=== PATIENT | female | born 1960 | race African-American/Black ===

== ENCOUNTER 2016-08-27 10:54 | Observation (INO) | payer BC ==
[2016-08-23 12:29] LABS: HEMATOCRIT 38.8 % (36.0-48.0); HEMOGLOBIN 12.6 g/dL (12.0-16.0)
[2016-08-23 12:43] LABS: A/G RATIO 0.8 (0.7-1.9); ALBUMIN 3.6 G/DL (3.5-5.0); ALKALINE PHOSPHATASE 81 U/L (45-117); CALCIUM, SERUM 9.3 MG/DL (8.5-10.4); CHLORIDE, SERUM 103 MMOL/L (96-112); CO2 (CARBON DIOXIDE) 30 MMOL/L (24-34); CREATININE 0.84 MG/DL (0.55-1.02); GFR AFRICAN AMERICAN 89 ML/MIN (>=60); GFR NON AFRICAN AMERICAN 77 ML/MIN (>=60); GLOBULIN 4.3 G/DL (2.5-4.1); GLUCOSE, SERUM 94 MG/DL (60-99); POTASSIUM, SERUM 3.8 MMOL/L (3.5-5.3); SGOT(AST) 10 U/L (5-40); SGPT(ALT) 14 U/L (5-65); SODIUM, SERUM 141 MMOL/L (135-148); TOTAL PROTEIN 7.9 G/DL (6.0-8.5)
[2016-08-23 12:44] LABS: BUN (BLOOD UREA NITROGEN) 11 MG/DL (6-23); TOTAL BILIRUBIN 0.4 MG/DL (0-1.2)
--- NOTE | ~2016-08-27 | OP ---
Record Of Operation [facility] [address] [facility] [address] NAME: MIGUEL CRANDALLYCE : 58 STATUS : DIS Masha [facility]#: [id number] AGE: 56 ADM/REG DATE : 08/27/16 MR#: [id number] REPORT SERV DATE: 08/29/16 DICTATED BY: RYAN OGDEN DATE: 08/29/16 REPORT STATUS : Draft TRANSCRIBED BY: NASREEN DATE: 08/29/16 DATE OF PROCEDURE: 08/27/2016 SURGEON: Ryan Ogden DPM. RIP SAW OPERATOR: Mirian Saucedo DPM PREOPERATIVE DIAGNOSES: 1. Left ankle synovitis. 2. Left peroneus brevis tendon tear. 3. Left malleolus avulsion fracture. 4. Left lateral ankle instability with anterior talofibular ligament disruption. POSTOPERATIVE DIAGNOSES: 1. Left ankle synovitis. 2. Left peroneus brevis tendon tear. 3. Left malleolus avulsion fracture. 4. Left lateral ankle instability with anterior talofibular ligament disruption. PROCEDURE: 1. Left ankle arthroscopy with synovectomy. 2. Left peroneus brevis tendon repair with tubularization and application of amniotic allograft for additional augmentation. 3. Left lateral ankle stabilization. 4. Left open treatment of distal fibular fracture, excision of avulsion fragment. ANESTHESIA: General. HEMOSTASIS: Left calf tourniquet set at 250 mmHg. ESTIMATED BLOOD LOSS: Minimal. MATERIALS UTILIZED: Arthrex 2.4 mini SutureTak x2, [employer] FlowerPatch, amniotic allograft, 2-0 Vicryl, 3-0 Vicryl, and 3-0 Prolene. INJECTABLES: 30 mL of 0.5% ropivacaine plain. COMPLICATIONS: None. CONDITION: Stable. JUSTIFICATION FOR PROCEDURE: The patient is a very pleasant 56-year-old female, well known to my practice with a history of an avulsion fracture to her left ankle. She was originally treated cast immobilization, but unfortunately developed a DVT to that limb. She was followed by Dr. Botello, Vascular Surgeon, who treat her the DVT surgically as well as medically. The patient continued to have pain over the past six months with conservative Record Of Operation [facility] [address] [place] [address] NAME: LAUREN CRANDALLSUSAN KWAN : 58 STATUS : DIS Masha PAT#: [id number] AGE: 56 ADM/REG DATE : 08/27/16 MR#: [id number] REPORT SERV DATE: 08/29/16 DICTATED BY: RYAN OGDEN DATE: 08/29/16 REPORT STATUS : Draft TRANSCRIBED BY: NASREEN DATE: 08/29/16 treatments and is only requesting surgical intervention at this time. An MRI was done showing peroneus brevis tendon tear as well as lateral ankle instability, as well as the avulsed fragment to the lateral malleolus. A discussion was held with Dr. Botello regarding tourniquet utilization with his patient, he was okay with utilization of calf tourniquet, but advised against utilization of a thigh tourniquet. We will follow those recommendations. The patient understands all the risks, benefits, alternatives, postoperative course in detail, as they have been explained to her by myself. Informed consent was obtained and the patient understands as in all surgeries, there are no guarantees, none of which have been given, stated, or implied. The patient was cleared from medical standpoint and we will plan on admitting the patient for 23 hour observation postoperatively. DESCRIPTION OF PROCEDURE AND FINDINGS: Under mild sedation the patient was brought into the operating room and placed on the operating room table in supine position. Following induction of general anesthesia a bump was placed underneath the left hip to generally rotate the left leg. A well-padded pneumatic calf tourniquet was applied, and the left lower extremity was prepped, scrubbed, and draped in the usual sterile fashion. Next, an Esmarch bandage was utilized to exsanguinate the left lower extremity and the pneumatic tourniquet was inflated to 250 mmHg. At this time, a spinal needle was used to insufflate the left ankle joints with approximately 20 mL of saline. A small incision approximately 1 cm length was made just medial to the tibialis anterior tendon over the ankle joint. A blunt dissection was carried down to the capsule and the obturator and cannula were inserted into the ankle joint. The obturator was removed and the small joint scope was inserted. There was noted to be no significant osteochondral lesion or defects, but there was significant amount of synovitis within the anterior ankle capsule, as well as the lateral gutter. The anterolateral aspect of the ankle joint was then transilluminated and a 1 cm incision was made over the anterolateral aspect of the ankle taking care to avoid the intermediate dorsal cutaneous nerve. Again, blunt dissection was used, followed by puncture of the ankle capsule with obturator. Next, the 3.5-mm Aggressive Shaver was inserted into the lateral portal and a synovectomy was performed. Next, the scope and shaver were removed and the portals were closed with 3-0 Prolene in a horizontal mattress fashion. At this time, attention was directed to the lateral ankle where a skin was utilized to plan out a 6 cm incision approximately 3 cm proximal to the distal aspect of the fibula extending distally towards the base of the fourth metatarsal. Next, a #15 blade was utilized to make an incision down to the subcutaneous layer, taking care to identify and retract neurovascular structures and cauterize any bleeders. A blunt dissection was carried down through the subcutaneous layer utilizing curved [place]. It should be noted that the superficial peroneal nerve as well as sural nerves were carefully protected and retracted. At this time, the superficial peroneal retinaculum was dissected from the underlying capsular ligament, and the lateral ligaments ATFL and CFL were detached from the fibula by sharp dissection. At this time, the small avulsion fracture at the distal aspect of fibula was identified and excised utilizing scalpel as well as rongeurs to remove the hypertrophied bone at the distal aspect of the fibula. Again, intraoperative fluoroscopy was utilized during this portion of the procedure and we had excellent resection of the avulsion Record Of Operation [address] [place]. [address] NAME: MIGUEL CRANDALL : 58 STATUS : DIS Masah PAT#: [id number] AGE: 56 ADM/REG DATE : 08/27/16 MR#: [id number] REPORT SERV DATE: 08/29/16 DICTATED BY: RYAN OGDEN DATE: 08/29/16 REPORT STATUS : Draft TRANSCRIBED BY: NASREEN DATE: 08/29/16 fraction. Next, care was taken to leave a leave a cuff of capsule and ligaments by making the incision a few millimeters proximal to the edge of the fibula. It should be noted that the ligamentous side were attenuated with tears noted. Next, the peroneal tendons were visualized along its course and the peroneal tendon sheath was severed along the course of the peroneal tendons and tagged with 3-0 Vicryl for later approximation. The peroneal brevis tendon was noted to be significantly flattened and a longitudinal tear was noted along the course of the tendon starting approximately 3 cm proximal to the distal aspect of the fibula extending distally. Upon visualizing the entire portion of the tear any devitalized portion of the tendon was resected and utilizing 2-0 Vicryl the tendon was tubularized in order to form a nice round structure. All the tenosynovitis within the tendon sheath was resected. It was also to be noted that there was a mild low line muscle belly within the peroneal brevis tendon, this was resected as well utilizing cautery. Next, this wound was copiously irrigated with sterile saline. It should be noted 2-0 Vicryl was utilized to tabularize the tendon in a buried suture fashion and the peroneus longus tendon was left uninterrupted. At this time, attention was directed again to the fibula, where the bone was prepared for the insertion of the anchors. Two anchors were placed, the bone pre-drilled with a 1.8 mm drill bit in order for insertion of the 2.4 mm SutureTak. Next the 2.4 mini SutureTak anchors were placed in the holes, due to the small size of fibula only two anchors were utilized at this portion. The first anchor was placed approximately 5 mm proximal to the distal tip of fibula, the second anchor was placed 1 cm proximal to that site. Next, with the anchors fully seated, the sutured needles were passed through ATFL and CFL, and capsule and they were advanced to the distal fibula. It should be noted that prior to tying these sutures down, the foot was held in dorsiflex and in everted position in order to maximally stabilize the lateral ligaments. At this time, the ankle was tested and there was noted to be a negative anterior dorsi and the wound was copiously irrigated with sterile saline. 2-0 Vicryl was utilized to reapproximated the peroneal tendon sheath along its course. It should be noted that prior to reapproximation of the peroneal tendon sheath an application of amniotic allograft FlowerPatch was applied around the peroneal brevis tendon to further augment the structure and prevent adhesion along the tendon sheath as well as promote healing within the tendon. Again, the peroneal tendon sheath was reapproximated along its course. Next, the peroneal retinaculum was advanced over the ligaments of the lateral ankle and sutured in place with periosteum utilizing 2-0 Vicryl. We had excellent correction of this deformity. Again, the wound was copiously irrigated and 3-0 Vicryl was utilized at this time for subcutaneous reapproximation, followed by 3-0 Prolene cutaneous reapproximation in horizontal mattress fashion. Next, the tourniquet was deflated and there was noted to be an immediate hyperemic response to the patient's left foot and leg. Next, the aforementioned 30 mL of 0.5% ropivacaine plain was injected proximal to the incision site, as well as within the ankle joint. Xeroform was applied over all the incision site, followed by copious gauze, Kerlix, and the left lower extremity was placed in a well-padded posterior splint. It should be noted that the posterior splint was held in a dorsiflexed and everted position to help maintain the correction. The patient tolerated the procedure and anesthesia well, and left the operating room with Record Of Operation [address] [place]. [address] NAME: MIGUEL CRANDALL : 58 STATUS : DIS Masha PAT#: [id number] AGE: 56 ADM/REG DATE : 08/27/16 MR#: [id number] REPORT SERV DATE: 08/29/16 DICTATED BY: RYAN OGDEN DATE: 08/29/16 REPORT STATUS : Draft TRANSCRIBED BY: NASREEN DATE: 08/29/16 vital signs stable, and neurovascular status intact to her left lower extremity. The patient will be transferred to recovery, where nurses were asked to ice and elevate the patient's left lower extremity. The patient has been instructed to be strictly nonweightbearing approximately for six weeks. She is to reinitiate her anticoagulation therapy utilizing Lovenox, as well as Coumadin starting Tuesday morning. She is going to be utilizing the Lovenox for next five days until the Coumadin is at therapeutic levels. She is to follow up with Dr. Botello for management of her vascular status. The patient will be admitted to the floor for 23 hour observation under the service of Dr. Guerra. The patient again has been instructed on all signs of infection as well as DVT. The patient has been instructed to call the office immediately or report to the emergency room if any problems or signs of infection should occur prior to her scheduled followup appointment. She is to follow up with me within three to five days unless any signs of infection or DVT should occur at which time she is to the emergency room immediately. CARLOS/NASREEN Ryan Ogden DPM / [id number] CC: MD Oumou Mckeon M.D.
--- NOTE | ~2016-08-27 | HP ---
History And Physical [facility] [place] [id number] [facility] [place]. [address] NAME: MIGUEL CRANDALL : 58 STATUS : ADM Masha PAT#: [id number] AGE: 56 ADM/REG DATE : 08/27/16 MR#: [id number] REPORT SERV DATE: 08/28/16 DICTATED BY: BLAYNE SARABIA DATE: 08/27/16 REPORT STATUS : Draft TRANSCRIBED BY: MODL DATE: 08/27/16 DATE OF ADMISSION: 08/27/2016 CHIEF COMPLAINT: Left ankle fracture. HISTORY OF PRESENT ILLNESS: This is a 56-year-old lady with no pertinent past medical history, presenting postop a left ankle ORIF. The patient had left ankle fracture back in February of last year. Efforts have been made thus far to treat the ankle fracture non- operatively, but the patient has failed to heal and she actually developed DVT from having had the cast for a long time, and thus, decision was made to have an ORIF of the left ankle today. The patient is actually postop, and she was to be monitored overnight by the operating physician, Dr. Souza. However, he did not have any admitting privileges at our facility and thus Hospitalist Service was consulted for admission of the patient for observation overnight. Apparently, there was no obvious complications in regard to the surgery itself or the recovery postop. However, the main concern is to be able to watch the patient overnight for better pain control prior to discharge home. REVIEW OF SYSTEMS: The patient denies any fevers or chills. Also, 14-point review of systems reviewed and negative other than mentioned above. MEDICATIONS: 1. Lotensin 18/05.5 one tab p.o. b.i.d. 2. Albuterol inhaler. 3. Coumadin 5 mg p.o. daily. 4. Lovenox bridging for the surgery. 5. Norvasc 5 mg p.o. daily. 6. Percocet 5/325 one tab p.o. q.6 hours p.r.n. 7. Aspirin 81 mg p.o. daily. 8. Vitamin D 1000 units p.o. daily. 9. Os-Clem D 500 mg p.o. daily. ALLERGIES: AMOXICILLIN. PAST MEDICAL HISTORY: 1. Hypertension. 2. DVT from having had a prolonged left ankle immobilization with cast. PAST SURGICAL HISTORY: 1. Bilateral tubal ligation. 2. Hysterectomy. 3. Left thumb amputation. 4. Carpal tunnel release. SOCIAL HISTORY: The patient does not smoke, drink alcohol, or use any illicit drugs. The patient is at home with her daughter. The patient has multiple family members in the room History And Physical [address] [place]. [address] NAME: MIGUEL CRANDALL : 58 STATUS : ADM Masha PAT#: [id number] AGE: 56 ADM/REG DATE : 08/27/16 MR#: [id number] REPORT SERV DATE: 08/28/16 DICTATED BY: BLAYNE SARABIA DATE: 08/27/16 REPORT STATUS : Draft TRANSCRIBED BY: NASREEN DATE: 08/27/16 during my encounter. PHYSICAL EXAMINATION: VITAL SIGNS: The initial set of vital signs are still pending at this time, but the patient is seen to be afebrile and quite stable on room air. GENERAL: The patient is alert and oriented x3 with no focal neurologic deficits. The patient is awake, does not appear to be in acute distress, and she is cooperative. NECK: No JVD. No lymphadenopathy. Normal thyroid. CHEST: No midline sternotomy scar and no tenderness to palpation. LUNGS: Clear to auscultation bilaterally with normal respiratory effort on room air. CARDIOVASCULAR: Regular rate and rhythm with no murmurs, rubs, or gallops, and PMI is nondisplaced. ABDOMEN: Soft, nontender, with active bowel sounds and no organomegaly. EXTREMITIES: No edema. Normal distal pulses. No calf tenderness. The patient's left ankle is tightly dressed and wrapped after the surgery. SKIN: Clean, dry, warm, and intact. LABS: Reviewed and there is a CMP from 08/23/2016, which was completely within normal limits, and the patient also had a CBC this morning, which is also quite benign. ASSESSMENT: This is a 56-year-old lady who is being admitted to the hospital postop for a 23 hour observation for better pain control prior to discharge home. 1. Status post open reduction and internal fixation of left ankle. 2. Hypertension. 3. History of deep vein thrombosis. PLAN: We will admit the patient overnight for better pain control. The patient will be able to resume all of her home medications and diet. Assuming, the patient has no further complications, the patient should be able to be discharged home tomorrow. Hospitalist Service will be available throughout the hospital stay and provide for any additional needs that may arise. Standard DVT prophylaxis. The patient is full code at this time. YSC/MODL Blayne Sarabia MD / [id number] CC: MD Oumou Mckeon M.D.
--- NOTE | ~2016-08-27 | DS ---
Discharge Summary [facility] [address] [place]. [address] NAME: MIGUEL CRANDALL : 58 STATUS : DIS Masha PAT#: [id number] AGE: 56 ADM/REG DATE : 08/27/16 MR#: [id number] REPORT SERV DATE: 08/28/16 DICTATED BY: BLAYNE SARABIA DATE: 08/28/16 REPORT STATUS : Draft TRANSCRIBED BY: MODL DATE: 08/28/16 ADMISSION DATE: 08/27/2016 DISCHARGE DATE: 08/28/2016 DISCHARGE DIAGNOSES: 1. Status post left ankle surgery. 2. Hypertension. 3. History of deep vein thrombosis. CONSULT: Dr. Souza. PROCEDURES: Left ankle ORIF. HOSPITAL COURSE: This is a 56-year-old lady, who was actually admitted postop left ankle ORIF. For details, please refer to my H and P from yesterday. The patient's surgery was uncomplicated and the patient actually did well overnight. The patient was simply monitored for observation overnight for better pain control. The patient is now being discharged home with p.o. pain medications and to be continued to follow up closely as an outpatient. DISCHARGE MEDICATIONS: No changes, but I am giving her prescription for a Percocet 5/325 one to two tabs p.o. q.4 hours p.r.n. for a dose of 20. I am also giving her a prescription for Dulcolax prophylactically. Otherwise, no medication changes. DISPOSITION: Home. FOLLOWUP: 1. Please follow up with Dr. Souza as already scheduled. 2. Please follow up with PCP in the next two to three weeks. Total of 25 minutes spent in coordinating this patient's discharge today. Cam/NASREEN Blayne Sarabia MD / [id number] CC: MD Oumou Mckeon M.D.
[~2016-08-27 10:54] MED LIST: ALEVE220 MG PO; ALLEGRA-D12 HOUR PO; ASAB PO; C5 PO; FLONASE NAS; FLUTICASON INH; LOTE5 PO; LOTENSIN HCT1 TA2 PO; LOVENOX; MUCINEX DM1 TAB OR; NORV5 PO; OS500+D PO; PCET PO; PROVHFA INH; VESICARE5 PO; VITAMIN D1000 UNI1 PO
[2016-08-27 12:47] LABS: BASOPHILS 0.3 %; BASOPHILS ABSOLUTE 0.02 10/3/uL (0.0-0.16); EOSINOPHILS 3.6 %; EOSINOPHILS ABSOLUTE 0.21 10/3/uL (0.0-0.53); HEMATOCRIT 36.7 % (36.0-48.0); HEMOGLOBIN 11.7 g/dL (12.0-16.0); IMMATURE GRANULOCYTES 0.2 %; IMMATURE GRANULOCYTES ABSOLUTE 0.01 10/3/uL (0.0-0.11); LYMPHOCYTES 37.3 %; LYMPHOCYTES ABSOLUTE 2.19 10/3/uL (0.67-4.30); MEAN CORPUS HGB CONC 31.9 g/dL (32.0-36.0); MEAN CORPUSCULAR HEMOGLOB 29.5 pg (26.0-34.0); MEAN CORPUSCULAR VOLUME 92.4 fL (80-100); MEAN PLATELET VOLUME 10.1 fL (9.2-13.0); MONOCYTES 7.5 %; MONOCYTES ABSOLUTE 0.44 10/3/uL (0.21-1.20); NEUTROPHILS 51.1 %; PLATELET COUNT 233 10/3/uL (150-400); RBC DISTRIBUTION WIDTH 13.1 % (12.0-16.0); RED CELL COUNT 3.97 10/6/uL (4.0-5.6)
[2016-08-27 12:49] LABS: MANUAL DIFF NO %; WHITE BLOOD CELLS 5.9 10/3/uL (4.5-10.5)
[2016-08-27 12:50] LABS: INTERNATIONAL NORMAL RATI 1.2 UNITS (-); PROTIME (NOT ORD) 14.8 SEC (12.0-14.5)
[2016-08-28 04:30] LABS: BASOPHILS 0.1 %; BASOPHILS ABSOLUTE 0.01 10/3/uL (0.0-0.16); EOSINOPHILS 0 %; HEMATOCRIT 35.2 % (36.0-48.0); HEMOGLOBIN 11.3 g/dL (12.0-16.0); IMMATURE GRANULOCYTES 0.3 %; IMMATURE GRANULOCYTES ABSOLUTE 0.03 10/3/uL (0.0-0.11); LYMPHOCYTES 12.4 %; LYMPHOCYTES ABSOLUTE 1.29 10/3/uL (0.67-4.30); MANUAL DIFF NO %; MEAN CORPUS HGB CONC 32.1 g/dL (32.0-36.0); MEAN CORPUSCULAR HEMOGLOB 29.4 pg (26.0-34.0); MEAN CORPUSCULAR VOLUME 91.7 fL (80-100); MEAN PLATELET VOLUME 10.2 fL (9.2-13.0); MONOCYTES 4.2 %; MONOCYTES ABSOLUTE 0.44 10/3/uL (0.21-1.20); PLATELET COUNT 246 10/3/uL (150-400); RBC DISTRIBUTION WIDTH 13.2 % (12.0-16.0); RED CELL COUNT 3.84 10/6/uL (4.0-5.6); WHITE BLOOD CELLS 10.4 10/3/uL (4.5-10.5)
[2016-08-28 04:38] LABS: INTERNATIONAL NORMAL RATI 1.1 UNITS (-); PARTIAL THROMBO TIME 30.5 SEC (22.5-37.2); PROTIME (NOT ORD) 14.4 SEC (12.0-14.5)
[2016-08-28 04:41] LABS: BUN (BLOOD UREA NITROGEN) 13 MG/DL (6-23); CALCIUM, SERUM 8.6 MG/DL (8.5-10.4); CHLORIDE, SERUM 106 MMOL/L (96-112); CO2 (CARBON DIOXIDE) 27 MMOL/L (24-34); CREATININE 1.13 MG/DL (0.55-1.02); GFR AFRICAN AMERICAN 62 ML/MIN (>=60); GFR NON AFRICAN AMERICAN 54 ML/MIN (>=60); POTASSIUM, SERUM 3.9 MMOL/L (3.5-5.3); SODIUM, SERUM 143 MMOL/L (135-148)
[2016-08-28 04:46] LABS: GLUCOSE, SERUM 165 MG/DL (60-99)
[2016-08-28] MEDS ORDERED: BIST PO ×2 (10:51→11:58)
== END 2016-08-28 12:26 | disposition home or self-care (01) ==
LOC: SDC 10:54 → 3SO 17:56
PROVIDERS: Anesthesiology; Podiatrist
PROC: 0LQT0ZZ Repair Left Ankle Tendon, Open Approach (ICD-10-PCS; 2016-08-27)
PROC: 0QSK04Z Reposition Left Fibula with Internal Fixation Device, Open Approach (ICD-10-PCS; 2016-08-27)
PROC: 0SBG4ZZ Excision of Left Ankle Joint, Percutaneous Endoscopic Approach (ICD-10-PCS; principal; 2016-08-27 12:15)
DX: S82.62XA Displaced fracture of lateral malleolus of left fibula, initial encounter for closed fracture (principal); S93.492A Sprain of other ligament of left ankle, initial encounter; S86.312A Strain of muscle(s) and tendon(s) of peroneal muscle group at lower leg level, left leg, initial encounter; M25.372 Other instability, left ankle; M65.872 Other synovitis and tenosynovitis, left ankle and foot; I10 Essential (primary) hypertension; J45.909 Unspecified asthma, uncomplicated; G43.909 Migraine, unspecified, not intractable, without status migrainosus; D64.9 Anemia, unspecified; Z86.718 Personal history of other venous thrombosis and embolism; Z98.51 Tubal ligation status; Z89.012 Acquired absence of left thumb; Z98.890 Other specified postprocedural states; Z88.0 Allergy status to penicillin; Z79.82 Long term (current) use of aspirin; Z79.01 Long term (current) use of anticoagulants; Z79.899 Other long term (current) drug therapy; M19.90 Unspecified osteoarthritis, unspecified site; Z90.711 Acquired absence of uterus with remaining cervical stump; Z87.891 Personal history of nicotine dependence
CPT/HCPCS: 73610-LT; 80048; 80053; 85014; 85018; 85025; 85610; 85730; 93005; 96372; 96374; 96375; 96376; 97161-GP; A9270-GY; C1713; C1762; G0378; G8978-CI-GP; G8979-CI-GP; G8980-CI-GP; J0690; J2250; J2270; J2405; J2795; J3010